=== PATIENT | male | born 1985 | race Caucasian/White ===

== ENCOUNTER 2016-12-12 18:21 | Emergency (ER) | payer OTHER ==
[2016-12-12 18:38] VITALS: BP 128/75; PULSE 80; TEMP 98; BMI 19.0
--- NOTE | 2016-12-12 19:00 | PDOC ---
History of Present Illness - General History Source: Patient Exam Limitations: No Limitations - History of Present Illness Initial Comments: 12/12/16 19:14 The patient is a 31 year old male, with no significant past medical history, who presents to the emergency department complaining of scrotal tingling for several days. Patient reports he has noted scrotal tingling with no associated pain or discharge. Today, patient reports he noted some scrotal edema. Patient reports he is sexually active and recently engaged in unprotected sex. He denies any fever or chills. He denies any dysuria, hematuria, frequency, or urgency. The patient denies any recent trauma or heavy lifting. PAST MEDICAL HISTORY: no significant history PAST SURGICAL HISTORY: no significant history FAMILY HISTORY: no pertinent history SOCIAL HISTORY: Pt lives with family and is employed. Social ETOH use. Non smoker. No recreational drug use. MEDICATIONS: reviewed ALLERGIES: As per nursing notes General: No fevers or chills, no weakness, no weight loss HEENT: No change in vision. No sore throat,. No ear pain CardioVascular: No chest pain or shortness of breath Respiratory:No cough, or wheezing. Gastrointestinal: no nausea, vomiting, diarrhea or constipation, No rectal bleeding Genitourinary: Yes: +Scrotal tingling, +scrotal swelling. No dysuria, hematuria , or frequency Musculoskeletal: No joint or muscle pain or swelling Neurologic: No headache, vertigo, dizziness or loss of consciousness Psychiatric: nor depression Skin: No rashes or easy bruising Endocrine: no increased thirst or abnormal weight change Allergic: no skin or latex allergy All other systems reviewed and normal General: Well-nourished well-developed individual, no acute distress HEENT: Throat: Normal, tonsils normal, no erythema or exudate Neck: Supple, no meningeal signs, no lymphadenopathy Eyes::Pupils equal reactive and round, extraocular motion intact Chest: Nontender to palpation Cardiac: S1-S2 normal, regular rate and rhythm, no murmurs rubs or gallops Respiratory: Lungs clear to auscultation bilateral Abdomen: Soft, nondistended, normal bowel sounds, nontender to palpation diffusely. No groin, lymphadenopathy or lesions. GENITOURINARY: Circumcised penis, no discharge noted. Normal lay of the testicles. Normal cremaster reflex. No palpable lesions or masses. No transillumination. Normal exam. Extremities: Warm, dry, no cyanosis, clubbing, or edema Skin: No rashes Neuro: Alert and oriented x3, nonfocal exam, grossly intact, normal gait Psych: Normal mood and affect <Shari Roberson - Last Filed: 12/12/16 19:14> - General History Source: Patient Exam Limitations: No Limitations - History of Present Illness Initial Comments: 12/12/16 19:43 A portion of this note was documented by scribe services under my direction. I have reviewed the details of the note, within reason, and agree with the documentation. The case summary and management plan written by me. Assessment and plan: This is a 31-year-old male who comes in complaining of one day of scrotal tingling. Patient had a normal exam however he does have a history of unprotected sexual intercourse recently. Patient was treated for gonorrhea Chlamydia, and tested for syphilis and HIV. Patient does have a primary care doctor he can follow-up with. <Maria Esther Antunez I - Last Filed: 12/12/16 19:44> - General Chief Complaint: Pain Stated Complaint: TINGLING TO SCROTUM Time Seen by Provider: 12/12/16 18:59 Past History <Shari Roberson - Last Filed: 12/12/16 19:14> - Past Medical History Other medical history: DENIES - Psycho/Social/Smoking Cessation Hx Anxiety: No Suicidal Ideation: No Smoking History: Never smoked Information on smoking cessation initiated: No Hx Alcohol Use: Yes (SOCIAL) Drug/Substance Use Hx: No Substance Use Type: Alcohol <Maria Esther Antunez I - Last Filed: 12/12/16 19:44> - Past Medical History Allergies/Adverse Reactions: Allergies Allergy/AdvReac Type Severity Reaction Status Date / Time No Known Allergies Allergy Unverified 12/12/16 18:25 Home Medications: Ambulatory Orders NK [No Known Home Medication] 12/12/16 *Physical Exam - Vital Signs Last Vital Signs Temp Pulse Resp BP Pulse Ox 98 F 80 16 128/75 100 12/12/16 18:24 12/12/16 18:24 12/12/16 18:24 12/12/16 18:24 12/12/16 18:24 <Shari Roberson - Last Filed: 12/12/16 19:14> - Vital Signs Last Vital Signs Temp Pulse Resp BP Pulse Ox 98 F 80 16 128/75 100 12/12/16 18:24 12/12/16 18:24 12/12/16 18:24 12/12/16 18:24 12/12/16 18:24 <Maria Esther Antunez I - Last Filed: 12/12/16 19:44> *DC/Admit/Observation/Transfer - Attestations Scribe Attestion: 12/12/16 19:16 Documentation prepared by Shari Roberson, acting as medical leader for Maria Esther Antunez MD. <Shari Roberson - Last Filed: 12/12/16 19:14> - Discharge Dispostion Admit: No <Maria Esther Antunez I - Last Filed: 12/12/16 19:44> Diagnosis at time of Disposition: History of unprotected sex - Discharge Dispostion Disposition: HOME Condition at time of disposition: Stable - Patient Instructions Additional Instructions: You have been fully treated here in the emergency room reveal for gonorrhea and chlamydia. Test was sent to the lab for syphilis and HIV. Follow-up with your primary care doctor for the results of all of your tests. If any of them come back positive we will also call you. In addition to that follow-up with a urologist if symptoms persist. Return to the emergency department immediately with ANY new, persistent or worsening symptoms. Continue any medications as previously prescribed by your physician. You should follow up with your primary doctor as soon as possible regarding today's emergency department visit. . Please make sure your doctor reviews the results of your emergency evaluation. Thank you for coming to the Emergency Department today for your care. It was a pleasure to see you today. Please note that your evaluation is INCOMPLETE until you follow-up with your doctor.
[2016-12-12] MEDS ORDERED: AZITHROMYCIN 1 GM PACKET PO ONE (19:17)
[2016-12-12] MEDS ORDERED: AZITHROMYCIN 250 MG TABLET ONE (19:22)
[2016-12-12] MEDS ORDERED: cefTRIAXone SODIUM 1 GM VIAL ONE (19:22)
[2016-12-12 22:29] LABS: HIV 1 & 2 AB NEGATIVE; HIV 1 AGp24 NEGATIVE
== END 2016-12-12 19:37 | disposition home or self-care (01) ==
LOC: FER 18:21
DX: Z72.51 High risk heterosexual behavior (principal)
CPT/HCPCS: 36415; 86593; 87389; 87491; 87591; 99281-25